=== PATIENT | female | born 1950 | race Caucasian/White ===

== ENCOUNTER 2024-02-07 17:38 | Outpatient (CLI) | payer MEDICARE, SELFPAY | END 2024-02-07 23:59 | disposition home or self-care (01) | LOC: LAB.DROPOF 17:51 | PROVIDERS: PCP Family Medicine Hospice and Palliative Medicine; Visit Provider Family Medicine Hospice and Palliative Medicine | DX: R11.0 Nausea (principal); R05.9 Cough, unspecified | CPT/HCPCS: 87275; 87276 ==

== ENCOUNTER 2024-04-28 09:46 | Emergency (ER) | payer MEDICARE, OTHER, SELFPAY ==
--- NOTE | 2024-04-28 09:43 | ECG_ITS ---
APPROVED REPORT Exam: Resting ECG HR:69 bpm ECG Measurements Heart Rate 69 AXES VA 180 P 116 QRSd 82 QRS 40 QT 437 T 68 QTc 455 Conclusion SINUS RHYTHM WITH OCCASIONAL VENTRICULAR PREMATURE COMPLEXES SEPTAL MYOCARDIAL INFARCTION , OF INDETERMINATE AGE [40+ ms Q WAVE IN V1/V2] ABNORMAL ECG UNCONFIRMED REPORT Electronically signed by : Mickey Pedro, 04/28/2024 15:23:48
[2024-04-28 09:46] VITALS: BP 170/75; PULSE 87; RESP 16; TEMP 36.6; O2SAT 100; BMI 19.2
[2024-04-28 10:00] VITALS: BP 165/77; PULSE 66; RESP 13; O2SAT 99
--- NOTE | 2024-04-28 10:16 | CT_ITS ---
FINAL REPORT CLINICAL HISTORY: new onset seizure, non focal exam FINDINGS: CT NECK ANGIO, WITHOUT AND WITH CONTRAST TECHNIQUE: Thin section axial CT with contrast with multiplanar 3D MIP reconstruction. NASCET criteria and technique was utilized during interpretation. Aortic arch: Arch shows no significant narrowing. Great vessel origins are widely patent. Right carotid: No significant stenosis is seen of the cervical common or internal carotid artery. Left carotid: No significant stenosis is seen of the cervical common or internal carotid artery. Vertebrals: The vertebral arteries are codominant. No significant stenosis is present. IMPRESSION: No significant stenosis of the cervical carotid arteries This study was performed using automated techniques to achieve radiation exposure as low as reasonably Reviewed, Interpreted and Dictated by Rosalee Thomas MD Transcribed by Bree Schwartz Authenticated and [facility]
--- NOTE | 2024-04-28 10:16 | CT_ITS ---
FINAL REPORT CLINICAL HISTORY: new onset seizure, non focal exam FINDINGS: CTA HEAD TECHNIQUE: Thin section axial CT with contrast with 3D MIP reconstruction No aneurysm is seen. Major intracranial vessels are patent without significant stenosis. IMPRESSION: Unremarkable This study was performed using automated techniques to achieve radiation exposure as low as reasonably achievable Reviewed, Interpreted and Dictated by Rosalee Thomas MD Transcribed by Bree Schwartz Authenticated and . [facility]
--- NOTE | 2024-04-28 10:16 | CT_ITS ---
FINAL REPORT TECHNIQUE: Noncontrast exam This study was performed with techniques to keep radiation doses as low as reasonably achievable, (ALARA). Individualized dose reduction techniques using automated exposure control or adjustment of mA and/or kV according to the patient''s size were employed. CLINICAL HISTORY: new onset seizure, non focal exam COMPARISON: None FINDINGS: Moderate atrophy and chronic ischemic white matter changes are noted. No cortical edema is present. There is no obvious mass or hemorrhage. Ventricles are normal. Bone windows show no skull fracture or obvious obstructive lesion. IMPRESSION: No acute findings. Reviewed, Interpreted and Dictated by Rosalee Thomas MD Transcribed by Claire Schmidt Authenticated and . [facility]
--- NOTE | 2024-04-28 10:17 | XR_ITS ---
FINAL REPORT CLINICAL HISTORY: Shortness of breath COMPARISON: None FINDINGS: A single frontal view of the chest was obtained. No acute pulmonary opacity is present. There is no evidence of effusion or pneumothorax. Mediastinum is unremarkable. Heart size is normal. IMPRESSION: No acute abnormality. Reviewed, Interpreted and Dictated by Rosalee Thomas MD Transcribed by Claire Schmidt Authenticated and [facility]
--- NOTE | 2024-04-28 10:18 | HMH.EDGENADL ---
Discharge Plan Disposition Patient Disposition: Home, Self-Care Prescriptions Prescriptions: New cefdinir 300 mg capsule 300 mg PO BID 10 Days Qty: 20 0RF Referrals Follow up/Referrals: Bhavesh Aleman MD [Primary Care Provider] - See instructions Activity Restrictions/Add. Instructions Additional Instructions/Restrictions: Ms. Jordan had an extensive evaluation for her first/new onset seizure. No significant abnormality was found aside from urinary tract infection which may or may not be related. This may be a continuation of her frontotemporal dementia. If she does have a second seizure she will need to return to the emergency department and have a neurology evaluation and likely at that time be started on antiepileptic medications. Also she runs a high fever or changes in mental status please return as well. Clinical Impressions Clinical Impression: New onset seizure, UTI (urinary tract infection) Stand Alone Forms Stand Alone Forms: Work/School Release Instructions Patient Instructions: DI for Seizure Disorder -- Adult, DI for Seizure (Not Epilepsy/Seizure Disorder), DI for Seizure Disorder -- Child Print Language Print Language: Hungarian Discharge ED Provider: Daphne Pedro General Adult HPI General Chief complaint: Seizure Stated complaint: seizure like activity Time Seen by Provider: 04/28/24 09:56 Mode of Arrival: EMS Source of Information: EMS and Medical Record Description of Symptoms (Recalled from ER Triage Doc. by RN): EMS reports they were toned out for a seizure at 0905. When EMS arrived they were told by [facility] staff that the pt had seizure like activity 45min before they called. The RN reports she was convulsing and foaming at the mouth. This occurred for 1-2min. pt has no known medical hx of seizures. pt is only A&O x1-self. GCS 14. pt has a hx of dementia. BSFS 87 History of Present Illness HPI narrative: Patient is a 74-year-old presenting today with a first onset seizure. She is demented at her baseline comes from a [facility] and history is severely limited secondary to this. We did get some documentation from the [facility] she has a history of heart disease but no definitive history of any seizures or strokes that we are aware of. She had [facility] staff stated they had a witnessed generalized tonic-clonic seizure that lasted 1 to 2 minutes. This occurred about an hour ago at this point. Patient is alert only to self at baseline and is back to her baseline currently. She is unable to articulate any other concerns to me given her clinical status which appears to be chronic. Related Data Previous Rx's ?Medication ?Instructions ?Recorded cefdinir 300 mg capsule 300 mg PO BID 10 days #20 caps 04/28/24 Allergies Allergy/AdvReac Type Severity Reaction Status Date / Time carbenicillin (From Allergy Unknown Verified 04/28/24 10:06 Geocillin) allergy reaction codeine Allergy Unknown Verified 04/28/24 10:06 allergy reaction diclofenac (From Voltaren) Allergy Unknown Verified 04/28/24 10:06 allergy reaction meloxicam Allergy Unknown Verified 04/28/24 10:06 allergy reaction celecoxib (From Celebrex) AdvReac Cramping Verified 04/28/24 10:06 of the Muscles PFSH PFS Disclaimer: The information contained in this section may have been updated after the patient was seen, as this information can be updated by other users. Social History Smoking Status: Former smoker alcohol intake: never current occupational status: other Travel in the last 8 weeks: None ROS Obtained: Yes All systems reviewed & no additional complaints except as documented Physical Exam General General appearance: alert and in no apparent distress Head Head exam: atraumatic and normocephalic Respiratory Respiratory exam: Present normal lung sounds bilaterally; Absent respiratory distress Cardiovascular Cardiovascular exam: Present regular rate and normal rhythm Neurological Exam Neurological exam: Present alert and other (Nonfocal alert only to self speaking to me but in nonsensical sentences); Absent oriented X3 Medical Decision Making Medical Records Screening: Per USPSTF and CDC recommendations, given the prevalence of disease in our region, it is our hospital?s policy to screen for HIV and viral Hepatitis for all patients aged 18 and over and those with ongoing risk factors. Cricket Inquiry Pt receiving controlled substance: No Vital Signs: 04/28/24 09:46 04/28/24 10:00 04/28/24 11:31 Temperature 97.8 F Temperature Source Oral Pulse Rate 66 75 Pulse Rate [Left] 87 Respiratory Rate 16 13 12 Blood Pressure 165/77 H 192/74 H Blood Pressure [Right Arm] 170/75 H Blood Pressure Mean [Right Arm] 106 Blood Pressure Source [Right Arm] Automatic Cuff Blood Pressure Position [Right Arm] Sitting 02 Sat by Pulse Oximetry 100 99 97 Oxygen Delivery Method Room Air Room Air Room Air 04/28/24 12:00 Temperature Temperature Source Pulse Rate 76 Pulse Rate [Left] Respiratory Rate 13 Blood Pressure 179/90 H Blood Pressure [Right Arm] Blood Pressure Mean [Right Arm] Blood Pressure Source [Right Arm] Blood Pressure Position [Right Arm] 02 Sat by Pulse Oximetry 96 Oxygen Delivery Method Room Air Lab Data Lab results reviewed: Yes I reviewed the patient's lab results. Lab Results 04/28/24 09:52: WBC 7.8, RBC 4.38, Hgb 13.6, Hct 40.1, MCV 91.6, MCH 31.1, MCHC 33.9, RDW 14.6, Plt Count 256, MPV 11.1 H, Neut % (Auto) 76.6, Lymph % (Auto) 15.0, [place] % (Auto) 5.9, Eos % (Auto) 0.9, Baso % (Auto) 0.8, Neut # (Auto) 5.9, Lymph # (Auto) 1.2, [place] # (Auto) 0.5, Eos # (Auto) 0.1, Baso # (Auto) 0.1, Sodium 140, Potassium 3.8, Chloride 103, Carbon Dioxide 31 H, Anion Gap 9.8, BUN 10, Creatinine 0.70, Estimated Creat Clear 34, Estimated GFR 81, Est GFR ( Amer) 98, Glucose 100, Lactate 1.7, Calcium 9.5, Total Bilirubin 0.7, AST 42 H, ALT 24, Alkaline Phosphatase 67, Troponin I < 0.01, C-Reactive Protein 2.4, Total Protein 7.6, Albumin 4.5, Globulin 3.1, Albumin/Globulin Ratio 1.5 04/28/24 11:38: Urine Color Yellow, Urine Appearance Clear, Urine pH 7.5, Ur Specific [place] 1.010, Urine Protein Negative, Urine Glucose (UA) Negative, Urine Ketones Negative, Urine Blood Trace-i, Urine Nitrate Positive A, Urine Bilirubin Negative, Urine Urobilinogen 0.2, Ur Leukocyte Esterase Trace, Urine RBC Occasional, Urine WBC 10-20, Ur Squamous Epith Cells 10-20, Urine Bacteria 2+ 04/28/24 09:52 04/28/24 09:52 Orders (Tests/Meds): ED MEDICATIONS Discontinued Medications Generic Name Dose Route Start Last Admin Trade Name Freq PRN Reason Stop Dose Admin Sodium Chloride 1,000 mls @ 999 mls/hr 04/28/24 10:30 04/28/24 10:25 Sod Chlor 0.9% 1000ml Bag IV 04/28/24 11:30 999 mls/hr .Q1H1M DORA Administration Iopamidol 80 ml 04/28/24 11:16 04/28/24 11:17 Iopamidol-370 (76%);100ml Bottle IV 04/28/24 11:17 80 ml ONCE ONE Administration Sodium Chloride 10 ml 04/28/24 11:16 04/28/24 11:16 Sodium Chloride 0.9% 10ml Syr (Rad Only) IV 04/28/24 11:17 10 ml ONCE ONE Administration Sodium Chloride 50 ml 04/28/24 11:16 04/28/24 11:16 0.9 % Sodium Chloride 50 Ml Vial IV 04/28/24 11:17 50 ml ONCE ONE Administration ORDERS Category Date Time Status CT angio head Stat Cat Scan 04/28/24 10:[address] angio neck Stat Cat Scan 04/28/24 10:[address] head/brain wo con Stat Cat Scan 04/28/24 10:16 Taken CXR --portable [XR chest portable] Stat Exams 04/28/24 10:17 Taken CBC w/Auto Diff [Complete Blood Count Auto Diff] Stat Lab 04/28/24 09:52 Completed CMP [Comprehensive Metabolic Panel] Stat Lab 04/28/24 09:52 Completed CRP [C-Reactive Protein] Stat Lab 04/28/24 09:52 Completed Lactic Acid Stat Lab 04/28/24 09:52 Completed Trop I [Troponin I] Stat Lab 04/28/24 09:52 Completed Troponin I Q3H Lab 04/28/24 13:30 Ordered Troponin I Q3H Lab 04/28/24 16:30 Ordered UA [Urinalysis and Microscopic] Stat Lab 04/28/24 11:38 Completed Blood Culture Stat Micro 04/28/24 10:33 Received Urine Culture Stat Micro 04/28/24 11:38 Received Medical Decision Narrative: 74-year-old above history and physical and appears to be back to her baseline presented with a first onset seizure. At the age of 74 differential includes malignancy, infection, electrolyte abnormalities, medications or medication withdrawal etc. Broad workup is initiated and will reassess shortly. Reassessment 1233 patient said several hours of observation has been awake alert at her baseline family now at the bedside and agrees that this at the patient's baseline. She does have urinary tract infection CT scans were performed which I personally interpreted also reviewed radiology images and there is no acute intracranial pathology. Labs otherwise unremarkable. I discussed with the family that there is no indication at the moment for emergent neurologic intervention nor antiepileptic medications with a first-time seizure. They been given strict return precautions with any changes in mental status fevers additional seizures etc. Antibiotics were sent into [facility] which is the pharmacy that [facility] utilizes. Patient was discharged in stable condition. Critical Care Critical Care Time Critical Care Time: Yes Attestation: On 04/28/24, the high probability of a clinically significant, sudden or life threatening deterioration of the following system(s) required my full and direct attention, intervention and personal management. The time I documented below is in addition to time spent performing reported procedures but includes the following listed in this critical care notation. Total Time Total Critical Care Time: 35
[2024-04-28 10:24] LABS: Albumin Level 4.5 g/dl (3.5-5.0); Basophils # 0.1 K/mm3 (0-0.2); Basophils % 0.8 % (0.1-2.0); Chloride 103 mmol/L (98-107); Eosinophils # 0.1 K/mm3 (0.0-0.4); Eosinophils % 0.9 % (0.1-12.0); Hematocrit 40.1 % (37.0-47.0); Hemoglobin 13.6 g/dL (12.2-16.2); Lymphocytes # 1.2 K/mm3 (0.7-4.5); Mean Corpuscular HGB Conc 33.9 g/dL (31.8-35.4); Mean Corpuscular Hemoglobin 31.1 pg (27.0-31.2); Mean Corpuscular Volume 91.6 fl (81-99); Mean Platelet Volume 11.1 fl (7.4-10.4); Monocytes # 0.5 K/mm3 (0.1-1.0); Monocytes % 5.9 % (1.7-9.3); Neutrophils # 5.9 K/mm3 (1.8-7.8); Neutrophils % 76.6 % (37.0-80.0); Platelet Count 256 K/mm3 (142-424); Red Blood Count 4.38 M/mm3 (4.20-5.40); Red Cell Distribution Width 14.6 % (11.5-17.5); White Blood Count 7.8 K/mm3 (4.8-10.8)
[2024-04-28 10:25] LABS: Potassium 3.8 mmoL/L (3.5-5.1); Sodium 140 mmol/L (136-145)
[2024-04-28] MEDS: 0.9 % SODIUM CHLORIDE 1000ML 1,000 ML 999 ML IV (10:25)
[2024-04-28 10:27] LABS: Alanine Aminotransferase 24 U/L (12-78); Anion Gap 9.8 mEq/L (5-15); Aspartate Amino Transferase 42 U/L (14-36); Blood Urea Nitrogen 10 mg/dl (7-17); Carbon Dioxide 31 mmol/L (22.0-30.0); Creatinine Clearance Estimated 34 mL/min (50-200); Estimated Glomerular Filt Rate 81 ml/min (>60); GFR (African American) 98 ML/MIN (>60)
[2024-04-28 10:28] LABS: Albumin/Globulin Ratio 1.5 (1.1-1.8); Alkaline Phosphatase 67 U/L (38-126); Bilirubin,Total 0.7 mg/dl (0.2-1.3); Calcium 9.5 mg/dl (8.4-10.2); Globulin 3.1 g/dL (1.3-3.2); Glucose 100 mg/dl (74-100); Total Protein,Serum 7.6 g/dl (6.3-8.2)
[2024-04-28 10:33] LABS: C-Reactive Protein 2.4 mg/L (0-4)
[2024-04-28 10:38] LABS: Lactic Acid 1.7 mmol/L (0.7-2.1)
[2024-04-28 10:56] LABS: Troponin I < 0.01 ng/ml (0.00-0.034)
--- NOTE | 2024-04-28 10:59 | PC.NURSE ---
pt left room for CT scan at the moment
[2024-04-28] MEDS: SODIUM CHLORIDE 0.9% 10ML SYR (RAD ONLY) 10 ML IV (11:16)
[2024-04-28] MEDS: 0.9 % SODIUM CHLORIDE 50 ML VIAL IV (11:16)
[2024-04-28] MEDS: IOPAMIDOL-370 (76%);100ML BOTTLE 80 ML IV (11:17)
[2024-04-28 11:31] VITALS: BP 192/74; PULSE 75; RESP 12; O2SAT 97
[2024-04-28 11:45] LABS: Microscopic, Urine URINE MICROSCOPIC (MICROSCOPIC)
[2024-04-28 11:48] LABS: Appearance,Urine CLEAR (Clear); Bilirubin,Urine Negative (Negative); Blood, Urine TRACE-I (Negative); Color,Urine YELLOW (Yellow); Glucose,Urine (UA) Negative (Negative); Ketones,Urine Negative (Negative); Leukocyte Esterase,Urine TRACE (Negative); Nitrate,Urine POSITIVE (Negative); PH,Urine 7.5 (5.0-8.5); Protein,Urine Negative (Negative); Urobilinogen,Urine 0.2 EU/dl (0.2)
[2024-04-28 12:00] VITALS: BP 179/90; PULSE 76; RESP 13; O2SAT 96
[2024-04-28 12:12] LABS: RBC,Urine Occasional #/hpf (0-3)
[2024-04-28 12:13] LABS: Bacteria,Urine 2+ /lpf
[2024-04-28 12:47] VITALS: BP 162/89; PULSE 75; RESP 12; TEMP 36.6; O2SAT 97
--- NOTE | 2024-04-28 12:50 | PC.NURSE ---
I called report to Dania MUSTAFA at [facility].
== END 2024-04-28 12:55 | disposition home or self-care (01) ==
PROVIDERS: Emergency Provider Student in an Organized Health Care Education/Training Program; PCP Family Medicine Hospice and Palliative Medicine
DX: R56.9 Unspecified convulsions (principal); N39.0 Urinary tract infection, site not specified
CPT/HCPCS: 70450; 70496; 70498; 71045; 80053; 81001; 83605; 84484; 85025; 86140; 87040; 87086; 87088; 87186; 93005; 96360; 99285; J7030; Q9967

== ENCOUNTER 2024-06-01 16:34 | Emergency (ER) | payer MEDICARE, OTHER, SELFPAY ==
--- NOTE | 2024-06-01 16:41 | XR_ITS ---
PROCEDURE INFORMATION: Exam: XR Left Femur Exam date and time: 06/01/2024 5:08 PM Age: 74 years old Clinical indication: Injury or trauma; Fall; Blunt trauma; Hip; Left; Additional info: Fall, L hip pain TECHNIQUE: Imaging protocol: Radiologic exam of the left femur. Views: 2 views. COMPARISON: CT BONY PELVIS 06/01/2024 5:05 PM FINDINGS: Bones/joints: Left total hip arthroplasty. Demineralized bones. Degenerative change of the visualized osseous structures. Soft tissues: Unremarkable. Vasculature: Peripheral arterial vascular disease. IMPRESSION: No acute findings.
--- NOTE | 2024-06-01 16:41 | CT_ITS ---
PROCEDURE INFORMATION: Exam: CT Cervical Spine Without Contrast Exam date and time: 06/01/2024 5:03 PM Age: 74 years old Clinical indication: Injury or trauma; Fall; Blunt trauma; Additional info: Fall, hit head TECHNIQUE: Imaging protocol: Computed tomography of the cervical spine without contrast. Radiation optimization: All CT scans at this facility use at least one of these dose optimization techniques: automated exposure control; mA and/or kV adjustment per patient size (includes targeted exams where dose is matched to clinical indication); or iterative reconstruction. COMPARISON: CT ANGIO NECK 04/28/2024 11:07 AM FINDINGS: Bones: Vertebral alignment is maintained. There is preservation of vertebral body heights. Facet joints are aligned. Odontoid process is intact. Atlantoaxial interval maintained. No acute fracture. Uncovertebral and facet arthropathy result in varying degrees of neural foraminal narrowing at multiple levels. Lungs: Lung apices are normal. Soft tissues: Prevertebral and paravertebral soft tissues are maintained IMPRESSION: No acute fracture. No traumatic subluxation.
--- NOTE | 2024-06-01 16:41 | CT_ITS ---
PROCEDURE INFORMATION: Exam: CT Head Without Contrast Exam date and time: 06/01/2024 5:01 PM Age: 74 years old Clinical indication: Injury or trauma; Fall; Blunt trauma (contusions or hematomas); Additional info: Fall, hit head, AMS TECHNIQUE: Imaging protocol: Computed tomography of the head without contrast. Radiation optimization: All CT scans at this facility use at least one of these dose optimization techniques: automated exposure control; mA and/or kV adjustment per patient size (includes targeted exams where dose is matched to clinical indication); or iterative reconstruction. COMPARISON: CT ANGIO HEAD 04/28/2024 11:07 AM FINDINGS: Brain: There is no evidence of acute intracranial hemorrhage, extra-axial collection or locoregional mass effect. There are patchy and coalescent hypodensities in the periventricular and subcortical white matter. The appearance is nonspecific, but most likely represents chronic small vessel disease in a person of this age Cerebral ventricles: There is diffuse prominence of the ventricles and CSF containing spaces which can be attributed to age-related volume loss. No hydrocephalus or midline shift identified. Pituitary gland and sella: Sellar/parasellar structures, craniocervical junction and orbits are unremarkable Paranasal sinuses: Visualized sinuses are unremarkable. No fluid levels. Mastoid air cells: Visualized mastoid air cells are well aerated. Bones: No calvarial fracture Soft tissues: Unremarkable. IMPRESSION: No acute intracranial abnormality. No calvarial fracture.
--- NOTE | 2024-06-01 16:41 | XR_ITS ---
PROCEDURE INFORMATION: Exam: XR Left Hip Exam date and time: 06/01/2024 5:08 PM Age: 74 years old Clinical indication: Injury or trauma; Fall; Blunt trauma (contusions or hematomas); Left; Prior surgery; Surgery date: 6+ months; Surgery type: Hip replacement; Additional info: Fall, L hip pain TECHNIQUE: Imaging protocol: Radiologic exam of the left hip. Views: 2 or 3 views hip with pelvis when performed. COMPARISON: CT BONY PELVIS 06/01/2024 5:05 PM FINDINGS: Bones/joints: Left sacral ala fracture seen to better advantage on the cross-sectional evaluation. Diffuse degenerative change of the visualized osseous structures. Diffuse demineralized bones. Left total hip arthroplasty. Soft tissues: Unremarkable. Gastrointestinal tract: Moderate colonic stool burden. IMPRESSION: Left sacral ala fracture seen to better advantage on the CT of the pelvis.
--- NOTE | 2024-06-01 16:41 | CT_ITS ---
PROCEDURE INFORMATION: Exam: CT Pelvis Without Contrast, Skeleton Exam date and time: 06/01/2024 5:05 PM Age: 74 years old Clinical indication: Injury or trauma; Fall; Blunt trauma (contusions or hematomas); Left; Prior surgery; Surgery date: 6+ months; Surgery type: Hip replacement; Additional info: Fall, concern for L hip pain TECHNIQUE: Imaging protocol: Computed tomography of the pelvis without contrast. Exam focused on the skeleton. Radiation optimization: All CT scans at this facility use at least one of these dose optimization techniques: automated exposure control; mA and/or kV adjustment per patient size (includes targeted exams where dose is matched to clinical indication); or iterative reconstruction. COMPARISON: No relevant prior studies available. FINDINGS: Stomach: Prominent stool burden. Intestine: Mild rectal wall thickening. Vasculature: Atherosclerotic disease. Bones/joints: Mildly displaced comminuted yet predominantly transverse fracture of the anterior left sacral ala with extension into the sacroiliac joint. There is mild diastasis of the left sacroiliac joint. Left total hip arthroplasty without evidence for complication. Demineralized bones. Diffuse degenerative change of the visualized osseous structures. Soft tissues: Unremarkable. IMPRESSION: 1. Mildly displaced comminuted yet predominantly transverse fracture of the anterior left sacral ala with extension into the left sacroiliac joint. 2. Left sacroiliac joint demonstrates widening/diastasis. 3. Perhaps mild stercoral colitis.
[2024-06-01 17:03] VITALS: BP 136/63; PULSE 83; RESP 15; TEMP 36.6; O2SAT 99; BMI 22.9
[2024-06-01 17:19] LABS: Microscopic, Urine URINE MICROSCOPIC (MICROSCOPIC)
[2024-06-01 17:30] VITALS: BP 145/65; PULSE 48; RESP 17
[2024-06-01 17:30] LABS: Bilirubin,Urine Negative (Negative); Blood, Urine Negative (Negative); Color,Urine YELLOW (Yellow); Glucose,Urine (UA) Negative (Negative); Ketones,Urine Negative (Negative); Leukocyte Esterase,Urine 1+ (Negative); Nitrate,Urine POSITIVE (Negative); Protein,Urine Negative (Negative); Specific Gravity, Urine 1.015 (1.005-1.030); Urobilinogen,Urine 0.2 EU/dl (0.2)
[2024-06-01 17:34] LABS: Appearance,Urine Slightly Cloudy (Clear)
[2024-06-01 17:50] LABS: Bacteria,Urine 4+ /lpf; Squamous Epithelial Cell,Urine Occasional #/hpf (0-5); WBC,Urine 20-50 #/hpf (0-3)
[2024-06-01 18:00] VITALS: BP 130/62; PULSE 83; RESP 16; O2SAT 99
--- NOTE | 2024-06-01 18:28 | PC.NURSE ---
Called [facility] per Dr Cleary to speak with about transferring this pt with a Sacral Spinal Fx. [facility] advised that they would call back when they made contact with the Hospitalist
--- NOTE | 2024-06-01 18:29 | HMH.EDGENADL ---
Discharge Plan Disposition Patient Disposition: Xfer Short-Term Hosp Chief Complaint: Fall Prescriptions Prescriptions: No Action cefdinir 300 mg capsule 300 mg PO BID 10 Days Qty: 20 0RF Referrals Follow up/Referrals: Provider,Referral, MD [Primary Care Provider] - See instructions Clinical Impressions Clinical Impression: Closed fracture of sacrum without spinal cord injury Stand Alone Forms Stand Alone Forms: Transfer Record - ED Print Language Print Language: Czech Discharge ED Provider: Alireza Cleary General Adult HPI General Chief complaint: Fall Stated complaint: Fall, hit back of head, c/o L hip pain Time Seen by Provider: 06/01/24 16:37 Mode of Arrival: Ambulatory Source of Information: Patient Description of Symptoms (Recalled from ER Triage Doc. by RN): pt comes in for fall at snf that was witnessed, she was sitting in chair and leaned back too much and went straight back, no loc, pt is confused at baseline, and is tender to left hip upon palpation but no shortening or rotation noted, pt takes daily ASA and plavix. History of Present Illness HPI narrative: Please note that above description of symptoms, in this electronic medical record under categorization of recalled from ER triage doctor by RN are reflective of an initial nursing assessment, however, is not reflective of my full history and physical exam that was personally taken and clarified. Consequentially, this preceding description of symptoms, which may include the patient's categorized chief complaint in the EMR, do not reflect my personal clinical impression, and the ultimate description of history of present illness and patient stated complaints should be deferred to this section of the note. Unless stated otherwise or congruent with this section of the note, additional signs, symptoms, or incongruence should be interpreted as inaccurate with my clinical impression. Related Data Previous Rx's ?Medication ?Instructions ?Recorded cefdinir 300 mg capsule 300 mg PO BID 10 days #20 caps 04/28/24 Allergies Allergy/AdvReac Type Severity Reaction Status Date / Time carbenicillin (From Allergy Unknown Verified 04/28/24 10:06 Geocillin) allergy reaction codeine Allergy Unknown Verified 04/28/24 10:06 allergy reaction diclofenac (From Voltaren) Allergy Unknown Verified 04/28/24 10:06 allergy reaction meloxicam Allergy Unknown Verified 04/28/24 10:06 allergy reaction celecoxib (From Celebrex) AdvReac Cramping Verified 04/28/24 10:06 of the Muscles PFSH PFSH Disclaimer: The information contained in this section may have been updated after the patient was seen, as this information can be updated by other users. Social History (Updated 04/28/24 @ 12:34 by Daphne Pedro MD) Smoking Status: Never smoker alcohol intake: never current occupational status: other Travel in the last 8 weeks: None Have you lived/traveled outside [place] in past 30 days?: No Contact w/someone who lives/traveled outside [place] past 30 days?: No Exposure to someone with infectious disease in past 14 days?: No Do you have a fever (greater than 100.4 F or 38 C)?: No Have you tested positive for COVID-19: No Exposed to someone with COVID-19 in past 14 days?: No Do you have a sore throat?: No Do you have a cough?: No Do you have any weakness?: No Do you have any diarrhea?: No Are you experiencing any unusual bleeding?: No Do you have any muscle aches/pain?: No Do you have any abdominal pain?: No Are you experiencing loss of taste or smell?: No ROS Obtained: Yes All systems reviewed & no additional complaints except as documented Physical Exam General General appearance: alert Head Head exam: atraumatic and normocephalic Eye Eye exam: Present normal appearance, PERRL and EOMI Neck Neck exam: Present normal inspection, full ROM and trachea midline Respiratory Respiratory exam: Absent respiratory distress, wheezes, stridor, accessory muscle use or prolonged expiratory phase Cardiovascular Cardiovascular exam: Present other (Pulses equal symmetric in upper and lower extremities) Abdominal Exam Abdominal exam: Present soft; Absent distention, tenderness or pulsatile mass Extremities Exam Extremities exam: Absent edema Neurological Exam Neurological exam: Present alert, oriented X3 and CN II-XII intact; Absent motor sensory deficit Skin Skin exam: Present warm and dry; Absent diaphoresis or erythema Medical Decision Making Medical Records Medical records reviewed: Yes I reviewed the patient's medical records. Screening: Per USPSTF and CDC recommendations, given the prevalence of disease in our region, it is our hospital?s policy to screen for HIV and viral Hepatitis for all patients aged 18 and over and those with ongoing risk factors. Cricket Inquiry Pt receiving controlled substance: No Cricket was queried for this patient: No Vital Signs: 06/01/24 17:03 06/01/24 17:30 06/01/24 18:00 Temperature 97.8 F Temperature Source Axillary Pulse Rate 48 L 83 Pulse Rate [Right Radial] 83 Respiratory Rate 15 17 16 Blood Pressure 145/65 H 130/62 Blood Pressure [Right Arm] 136/63 Blood Pressure Mean Blood Pressure Mean [Right Arm] 87 02 Sat by Pulse Oximetry 99 99 Oxygen Delivery Method Room Air 06/01/24 18:00 06/01/24 18:30 06/01/24 19:01 Temperature Temperature Source Pulse Rate 81 86 Pulse Rate [Right Radial] Respiratory Rate 14 16 Blood Pressure 130/62 151/64 H 136/68 Blood Pressure [Right Arm] Blood Pressure Mean 87 Blood Pressure Mean [Right Arm] 02 Sat by Pulse Oximetry 100 98 Oxygen Delivery Method Lab Data Lab Results 06/01/24 16:30: Urine Color Yellow, Urine Appearance Slightly cloudy, Urine pH 7.0, Ur Specific [place] 1.015, Urine Protein Negative, Urine Glucose (UA) Negative, Urine Ketones Negative, Urine Blood Negative, Urine Nitrate Positive A, Urine Bilirubin Negative, Urine Urobilinogen 0.2, Ur Leukocyte Esterase 1+ A, Urine RBC 3-5, Urine WBC 20-50, Ur Squamous Epith Cells Occasional, Urine Bacteria 4+ Orders (Tests/Meds): ED MEDICATIONS Generic Name Dose Route Start Last Admin Trade Name Freq PRN Reason Stop Dose Admin Ceftriaxone Sodium 1 gm/ 50 mls @ 100 mls/hr 06/01/24 18:45 06/01/24 19:19 Sodium Chloride IV 06/11/24 18:44 100 mls/hr Q24H DORA Administration ORDERS Category Date Time Status CT bony pelvis Stat Cat Scan 06/01/24 16:[address] cervical spine wo con Stat Cat Scan 06/01/24 16:[address] head/brain wo con Stat Cat Scan 06/01/24 16:41 Completed Femur XR left 2 views [XR femur LT 2V] Stat Exams 06/01/24 16:41 Completed Hip XR left minimum 2 views [XR hip LT 2-3V w/pelvis] Exams 06/01/24 16:41 Completed Stat UA [Urinalysis and Microscopic] Stat Lab 06/01/24 16:30 Completed Urine Culture Stat Micro 06/01/24 16:30 Received Medical Decision Narrative: This is a 74-year-old female with frontotemporal dementia presenting with fall. Patient has also broken her hip from a fall in the recent past. Given dementia, unsure how of this happened, she was at the snf and nursing staff said she forgets that she cannot walk. Patient tried to stand up, fell backward, landed on her bottom and hit her head. Did not lose consciousness. Was brought to the emergency department for further evaluation. Patient brought in with EMS. History obtained the patient and EMS. On arrival, no acute complaints, but pleasantly demented. Having significant pain with being moved in bed, no pain with range of motion of hips, knees, lower extremities. Neurovascularly intact lower extremities. Patient does have tenderness about her lumbosacral spine. Differential includes sacral fracture, pelvic fracture, hip fracture, among others. CT is to be obtained. On independent interpretation, CT of the head negative for any acute bleed, CT of the cervical spine without injury. CT of the pelvis with left sacral ala fracture. Urinalysis also obtained given foul-smelling urine. On independent interpretation, this was positive for urinary tract infection. Patient was given 1 g ceftriaxone. [facility] was contacted and case was discussed at length for pelvic/spine fracture, graciously accepted by Dr. Leigh. Dietitian disclaimer Much of this encounter note is an electronic computer systems support specialist spoken language to printed text. Electronic computer systems support specialist of the spoken language may permit errors. Although I have reviewed the note, some errors may still exist. Critical Care Critical Care Time Critical Care Time: No
[2024-06-01 18:30] VITALS: BP 151/64; PULSE 81; RESP 14; O2SAT 100
[2024-06-01 19:01] VITALS: BP 136/68; PULSE 86; RESP 16; O2SAT 98
[2024-06-01] MEDS: CEFTRIAXONE 1 GM 1 GM in 0.9 % SODIUM CHLORIDE 50 ML IV (19:19)
--- NOTE | 2024-06-01 19:19 | PC.NURSE ---
[facility] knows about transfer to [facility]. Awaiting for another crew to be available [place].
[2024-06-01 20:38] VITALS: BP 126/74; PULSE 79; RESP 16; TEMP 36.6; O2SAT 97
--- NOTE | 2024-06-05 09:20 | PC.NURSE ---
jules at [facility] notified of new abx order
--- NOTE | 2024-06-05 09:36 | EXP.EVENT.NO ---
Urine culture resulted in E. coli greater than 100,000 CFU/mL. Resistant to ampicillin, however otherwise pansensitive. Patient's intermediate was called and stated that she was not prescribed any outpatient antibiotics after her discharge from the hospital. Prescribed 5 days of Duricef and sent to patient's preferred pharmacy.
== END 2024-06-01 20:39 | disposition short-term general hospital (02) ==
PROVIDERS: Emergency Provider Emergency Medicine
DX: S32.10XA Unspecified fracture of sacrum, initial encounter for closed fracture (principal); M25.552 Pain in left hip; Z79.01 Long term (current) use of anticoagulants; W07.XXXA Fall from chair, initial encounter; Y93.89 Activity, other specified; Y92.128 Other place in nursing home as the place of occurrence of the external cause
CPT/HCPCS: 70450; 72125; 72192; 73502; 73552; 81001; 87086; 87088; 87186; 96365; 99284; J0696